=== PATIENT | male | born 1980 | race Two or more races ===

== ENCOUNTER 2018-05-29 17:05 | Emergency (ER) | payer SELFPAY ==
[~2018-05-29] VITALS: Ht 167.6 cm; Wt 79.0 kg
[2018-05-29] MEDS ORDERED: CYCLOBENZAPRINE 10 MG TABLET ONE (17:16)
[2018-05-29] MEDS ORDERED: IBUPROFEN 600 MG TABLET ONE (17:16)
[2018-05-29] MEDS ORDERED: PLEASE ENTER HEIGHT AND WEIGHT MC SCH (17:30)
[2018-05-29] MEDS ORDERED: CYCLOBENZAPRINE 10 MG TABLET PO ONE (17:30)
[2018-05-29] MEDS ORDERED: IBUPROFEN 600 MG TABLET PO ONE (17:30)
--- NOTE | 2018-05-29 17:45 | NUR ---
TASK RN: DC EDUCATION PROVIDED, PT DEMONSTRATES UNDERSTANDING. PT AMBULATED STEADILY TODC WITH RN. PT STATES THAT [facility] WILL BE TRANSPORTING PT HOME.
[2018-05-29 17:47] VITALS: BP 135/80
== END 2018-05-29 17:47 | disposition home or self-care (01) ==
LOC: ED 17:05
DX: S39.012A Strain of muscle, fascia and tendon of lower back, initial encounter (principal); V57.5XXA Driver of pick-up truck or van injured in collision with fixed or stationary object in traffic accident, initial encounter; Y93.89 Activity, other specified; Y92.89 Other specified places as the place of occurrence of the external cause; Y99.8 Other external cause status
CPT/HCPCS: 99283